=== PATIENT | female | born 1965 | race Caucasian/White ===

== ENCOUNTER 2019-10-12 15:58 | Inpatient (IN) | payer BC ==
--- OUTSIDE RECORDS SUMMARY | 2019-10-12 16:02 | XMS REPORT ---
:1965 [facility] Address [address] Bill [address] [place] [id number] Care Team Providers Name Role Phone Unavailable Unavailable Unavailable Problems This patient has no known problems. Allergies, Adverse Reactions, Alerts This patient has no known allergies or adverse reactions. Medications This patient has no known medications.
[2019-10-12] MEDS ORDERED: HYDROCODONE/APAP 5/325 MG TAB PO PRN (16:15)
[2019-10-12 16:23] VITALS: BMI 27.4
[2019-10-12] MEDS ORDERED: VANCOMYCIN 1.25 GM in NA CHLORIDE 0.9% 250 ML IVPB ONE (17:00)
[2019-10-12 17:04] LABS: Absolute Lymphocytes (CBC) 1.5 K/uL (0.7-4.9); Basophils % 0.7 % (0-1.3); Hematocrit 40.4 % (36.0-45.0); MPV 8.4 fL (7.6-11.3); RBC Red Blood Cell Count 4.38 M/uL (3.86-4.86)
[2019-10-12 17:23] LABS: ALT/SGPT 29 U/L (12-78); AST/SGOT 26 U/L (15-37); Albumin 3.7 g/dL (3.4-5.0); Alkaline Phosphatase 86 U/L (45-117); BUN Blood Urea Nitrogen 14 mg/dL (7-18); Bicarbonate 25 mmol/L (21-32); Bilirubin Total 0.6 mg/dL (0.2-1.0); Glucose Level 100 mg/dL (74-106); Potassium 4.1 mmol/L (3.5-5.1); Protein, Total 7.4 g/dL (6.4-8.2); Sodium Level 137 mmol/L (136-145)
[2019-10-12 17:24] LABS: C-Reactive Protein < 2.90 mg/L (<3.00)
[2019-10-12] MEDS: IBUPROFEN 600 MG TAB PO SCH (17:30)
[2019-10-12] MEDS: levoFLOXacin 500 MG TAB PO SCH (17:30)
[2019-10-12] MEDS: CLINDAMYCIN INJ 900 MG in NA CHLORIDE 0.9% 50 ML IV SCH (17:30)
[2019-10-13] MEDS: IBUPROFEN 600 MG TAB PO SCH ×3 (01:00→18:20)
[2019-10-13] MEDS: CLINDAMYCIN INJ 900 MG in NA CHLORIDE 0.9% 50 ML IV SCH ×3 (01:22→17:27)
[2019-10-13] MEDS: levoFLOXacin 500 MG TAB PO SCH (08:08)
--- NOTE | 2019-10-13 10:48 | HP ---
Date of Admission: 10/12/2019 Chief Complaint: Pain in right second digit. 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 She started having pain and problems related to her right finger several days ago. She went to her primary care physician who diagnosed her with probable infection and placed her on oral antibiotics. She came to my office yesterday. When seen in the office yesterday, she does have what appears to be a very sma ll puncture wound along the radial aspect of her second digit at the proximal phalanx. Also was foun d to have fusiform swelling as well as pain throughout the length of the second digit tendon sheath. Also held her finger in flexed posture and had some pain with passive stretch. There was not a sign ificant amount of erythema and I would say the swelling is minimal. Also the pain with passive stret ch was not severe, although was definitely present. Physical Examination: HEENT: She is normocephalic, atraumatic. Chest: Clear to auscultation. Heart: Regular rate and rhythm. Abdomen: Benign. Past Medical History: Significant for hypertension. Medications: She is on lisinopril. Assessment: Probable very early septic flexor tenosynovitis. Plan: She is admitted directly from my office to the hospital, where she was started on IV antibioti cs for assessment in the morning, being n.p.o. after midnight for the possibility of surgical interve ntion. HERBERT/SOFI Voice ID: [id number]
--- NOTE | 2019-10-13 22:55 | CON ---
History: This patient was seen the day before admission with cellulitis of the finger. The patient did not want to stay in the hospital. She was given oral antibiotic on the following day. She was s een by Dr. Nice, who felt that she needed IV antibiotic. The patient is admitted. Medical History: Positive for hypertension, otherwise no history of any other active problems. Review of Systems: No chest pain, shortness of breath. Physical Examination: General: Revealed a 54-year-old female. Alert for her age. HEENT: Negative. Neck: Supple. JVD negative. Chest: Clear. Heart: Regular. Abdomen: Soft. Extremities: There is diffuse area of swelling and decreased range of motion of the second finger an d multiple small puncture cruz are seen. Assessment: 1.Cellulitis, tenosynovitis, second finger. 2.Hypertension. Plan: She is on a triple antibiotic therapy, it looks better today. The patient will have her blood pressure monitored and if blood pressure goes up, she will be restarted on her medications. HALEIGH/SOFI Voice ID: [id number] Report ID: [id number]
[2019-10-14] MEDS: CLINDAMYCIN INJ 900 MG in NA CHLORIDE 0.9% 50 ML IV SCH ×2 (00:17→07:55)
[2019-10-14] MEDS: IBUPROFEN 600 MG TAB PO SCH ×2 (00:18→08:01)
[2019-10-14 04:19] VITALS: BP 110/71; TEMP 97
--- NOTE | 2019-10-14 05:41 | PN ---
Date of Progress Note: 10/13/2019 Subjective: The patient is seen today. On examination, swelling in her finger as well as pain in he r finger have gone down. She can make a near full fist, limited slightly by amount of swelling she h as in her second digit. She still does have very mild pain to passive stretch, but I would say that she is definitely clinically improved from yesterday. She has been afebrile. White blood cell count from yesterday was 7.3 with sedimentation rate of 43. Assessment: This is a 54-year-old female who was made n.p.o. today for the possibility of irrigation and debridement for probable flexor tendon tenosynovitis of the second digit. As she is significant ly clinically improved on IV antibiotics and appears to be making a fairly rapid turnaround, we will pursue continued IV antibiotics. We will go head and let her eat today and make her n.p.o. after mid night for reassessment tomorrow. /SOFI Voice ID: [id number] Report ID: [id number]
[2019-10-14] MEDS: levoFLOXacin 500 MG TAB PO SCH (07:55)
--- NOTE | 2019-10-14 08:02 | DS ---
Date of Discharge: 10/14/2019 Preadmission Diagnosis: Probable right second digit septic flexor tenosynovitis, which is early onse t. Postoperative Diagnosis: Probable right second digit septic flexor tenosynovitis, which is early ons et. Pertinent Laboratory Data: High sedimentation rate, otherwise has been afebrile, normal. Hospital Course: She was admitted from my office with complaints of right finger pain. She did have all 4 cardinal signs of septic flexor tenosynovitis; however, this appeared to be very early and mil d. It is our hope that admitting her and placing her on IV antibiotics could stop her progression an d reverse the course. This is indeed what has happened. Now, she has full range of motion of her fi nger, although she does have very slight swelling, which may need a little bit of overpressure to karen e a full fist with the second digit. She has no pain with palpation. She has very, very mild swelli ng and appears to be improving and definitely not worsened at all. She has really no pain at this po int. We will discharge her home. She does have oral antibiotics that she will continue. We will olsen ve her follow up on Wednesday. She was told that if she has any change in her condition or worsening, that she may need to go to the emergency department or see us sooner, and she was told of the serious ness of this condition if it does not respond at home. She says she understands everything as marika lewis SE/SOFI Voice ID: [id number] Report ID: [id number]
[2019-10-14 09:58] VITALS: O2SAT 96
== END 2019-10-14 09:20 | disposition home or self-care (01) | DRG 558 ==
LOC: 4TH 15:58
PROVIDERS: ADMIT Orthopaedic Surgery; ATTEND Orthopaedic Surgery
DX: M65.841 Other synovitis and tenosynovitis, right hand (principal); L03.011 Cellulitis of right finger; I10 Essential (primary) hypertension
CPT/HCPCS: 36415; 80053; 85025; 85652; 86140; J7030